=== PATIENT | male | born 1955 | race Caucasian/White ===

== ENCOUNTER → 2020-11-30 16:05 | Outpatient (CLI) | payer OTHER, SELFPAY ==
--- NOTE | ~2020-11-30 | MR_ITS ---
EXAMINATION: MR lumbar spine wo con DATE: 11/30/2020 16:58 INDICATION: Lumbago. Right leg pain. TECHNIQUE: Magnetic resonance imaging (MRI) of the lumbar spine was performed without intravenous con trast. Sequences included sagittal T2-weighted FSE, sagittal T2-weighted FS FSE, sagittal T1-weighted FSE, and axial T2-weighted FSE. COMPARISON: None FINDINGS: There is 3 mm retrolisthesis of L5 on S1. There are Schmorl's nodes at most levels. There i s mild chronic anterior wedging of T12 and L1 vertebral bodies. There is mildly decreased disc height at L1-L2 and L2-L3 and moderately decreased disc height at L5-S1. Epidural lipomatosis is noted. The distal spinal cord signal intensity is normal. The conus medullaris is at L1. The following disc lev els are specifically discussed: L1-L2: The disc is bulging and has an annular fissure. There is severe right and mild left facet join t osteoarthritis. There is mild bilateral neural foraminal stenosis. There is mild central canal sten osis. L2-L3: The disc is bulging and has an annular fissure. There is mild bilateral facet joint osteoarthr itis. There is mild right and moderate left neural foraminal stenosis. There is mild central canal st enosis. L3-L4: The disc is bulging and has an annular fissure. There is mild bilateral facet joint osteoarthr itis. There is mild bilateral neural foraminal stenosis. There is mild central canal stenosis. L4-L5: The disc is bulging and has an annular fissure. There is severe bilateral facet joint osteoart hritis. There is mild bilateral neural foraminal stenosis. There is severe central canal stenosis. L5-S1: The disc is bulging. There is moderate bilateral facet joint osteoarthritis. There is mild liam ateral neural foraminal stenosis. There is mild central canal stenosis. IMPRESSION: 1. Moderate lumbar spondylosis. Reviewed, dictated and finalized at location A. [employer]
== END ==
PROVIDERS: PCP Family Medicine; Visit Provider Family Medicine
DX: M79.604 Pain in right leg (principal); M47.896 Other spondylosis, lumbar region
CPT/HCPCS: 72148